=== PATIENT | male | born 1955 | race Caucasian/White ===

== ENCOUNTER 2017-10-14 15:07 | Observation (INO) | payer SELFPAY ==
[2017-10-14 15:10] VITALS: BP 192/95; PULSE 68; RESP 16; O2SAT 96; O2SAT 97
[2017-10-14] MEDS ORDERED: NITROGLYCERIN 2% OINT 1 GM PACKET TOP ONE (15:30)
[2017-10-14] MEDS ORDERED: SODIUM CHLORIDE 0.9% FLUSH 10 ML FLUSH IVF PRN (15:30)
--- NOTE | 2017-10-14 15:33 | PD ---
HPI Chief Complaint: Chest Pain Time Seen by Provider: 15:10 Travel History International Travel<30 days: No Contact w/Intl Traveler<30days: No Traveled to known affect area: No History of Present Illness HPI This is a 62-year-old male who presents to the emergency department with chest discomfort in the center of his chest that woke him up from sleep at around 2 AM , constant, dull and aching, nonradiating, with no associated shortness of breath, nausea or diaphoresis. He's never had pain like this before. He says is a 7 out of 10 and hasn't gotten better throughout the day. He doesn't a history of hypertension but hasn't been on medication in 3-4 years. He also thinks his cholesterol is high. He has smoked intermittently but never for more than a year. His father had bypass surgery at the age of 70. He's never had a stress test. He denies any recent long trips. PFSH Past Medical History Hypertension: Yes Tetanus Vaccination: > 5 Years Influenza Vaccination: No Past Surgical History Surgical History: No Previous Surgery Social History Alcohol Use: Yes (OCCASIONALLY) Tobacco Use: No Substance Use: No Allergies-Medications (Allergen,Severity, Reaction): Coded Allergies: No Known Drug Allergies (Verified Allergy, Unknown, 10/14/17) Reported Meds & Prescriptions Reported Meds & Active Scripts Active No Active Prescriptions or Reported Medications Review of Systems Except as stated in HPI: all other systems reviewed are Neg Physical Exam Narrative GENERAL:Well appearing, no acute distress SKIN: Focused skin assessment warm and dry. HEAD: Atraumatic. Normocephalic. EYES: Pupils equal and round. No injection or drainage. ENT: Moist mucous membranes NECK: Trachea midline. CARDIOVASCULAR: Regular rate and rhythm. No murmur appreciated. RESPIRATORY: Clear to auscultation. Breath sounds equal bilaterally. GASTROINTESTINAL: Abdomen soft, non-tender, nondistended. MUSCULOSKELETAL: No obvious deformities. NEUROLOGICAL: Awake and alert. No obvious cranial nerve deficits. Moving all extremities. PSYCHIATRIC: Appropriate mood and affect; insight and judgment normal. Data Data Last Documented VS Vital Signs Date Time Temp Pulse Resp B/P (MAP) Pulse Ox O2 Delivery O2 Flow Rate FiO2 10/14/17 15:10 68 16 192/95 (127) 96 Orders Orders Electrocardiogram (10/14/17 15:26) Complete Blood Count With Diff (10/14/17 15:26) Comprehensive Metabolic Panel (10/14/17 15:26) Troponin I (10/14/17 15:26) Chest, Single Ap (10/14/17 15:) Ecg Monitoring (10/14/17 15:) Bilateral Bp Monitoring (10/14/17 15:) Iv Access Insert/Monitor (10/14/17:) Oximetry (10/14/17:) Oxygen Administration (10/14/17:) Nitroglycerin 2% Oint (Nitroglycerin 2% (10/14/17 15:30) Sodium Chloride 0.9% Flush (Ns Flush) (10/14/17 15:30) Morphine Inj (Morphine Inj) (10/14/17 16:45) Admit Order (Ed Use Only) (10/14/17 16:39) Labs Laboratory Tests Test 10/14/17 16:00 White Blood Count 12.5 TH/MM3 Red Blood Count 4.97 MIL/MM3 Hemoglobin 14.1 GM/DL Hematocrit 41.5 % Mean Corpuscular Volume 83.6 FL Mean Corpuscular Hemoglobin 28.5 PG Mean Corpuscular Hemoglobin Concent 34.1 % Red Cell Distribution Width 14.0 % Platelet Count 216 TH/MM3 Mean Platelet Volume 6.6 FL Neutrophils (%) (Auto) 85.1 % Lymphocytes (%) (Auto) 7.6 % Monocytes (%) (Auto) 6.8 % Eosinophils (%) (Auto) 0.3 % Basophils (%) (Auto) 0.2 % Neutrophils # (Auto) 10.8 TH/MM3 Lymphocytes # (Auto) 0.9 TH/MM3 Monocytes # (Auto) 0.8 TH/MM3 Eosinophils # (Auto) 0.0 TH/MM3 Basophils # (Auto) 0.0 TH/MM3 CBC Comment DIFF FINAL Differential Comment Blood Urea Nitrogen 11 MG/DL Creatinine 1.10 MG/DL Random Glucose 103 MG/DL Total Protein 7.7 GM/DL Albumin 4.2 GM/DL Calcium Level 9.0 MG/DL Alkaline Phosphatase 50 U/L Aspartate Amino Transf (AST/SGOT) 20 U/L Alanine Aminotransferase (ALT/SGPT) 32 U/L Total Bilirubin 0.8 MG/DL Sodium Level 132 MEQ/L Potassium Level 4.0 MEQ/L Chloride Level 96 MEQ/L Carbon Dioxide Level 28.7 MEQ/L Anion Gap 7 MEQ/L Estimat Glomerular Filtration Rate 68 ML/MIN Troponin I LESS THAN 0.02 NG/ML MDM Medical Decision Making Medical Screen Exam Complete: Yes Emergency Medical Condition: Yes Interpretation(s) EKG: Normal sinus rhythm, no ST changes Mild leukocytosis 85% neutrophils Mild hyponatremia Troponin is normal Chest x-ray with no acute process Differential Diagnosis Acute coronary syndrome, pulmonary embolism, aortic dissection, costochondritis , anxiety Narrative Course This is a 62-year-old male who presents to the emergency department with sternal chest discomfort that's been present since overnight. EKG is nonischemic. Labs are obtained which were reassuring. His pain is nonradiating and would be atypical for aortic dissection and he has no risk factors for pulmonary embolism. Patient does have a history of untreated hypertension. Plan for observation in the chest pain center for serial cardiac enzymes and likely risk stratification tomorrow. He was hypertensive in the emergency department and he was given nitroglycerin and morphine for pain and his blood pressure improved. Physician Communication Physician Communication Discussed with Dr. Bland Diagnosis Primary Impression: Chest pain Qualified Codes: R07.9 - Chest pain, unspecified Admitting Information Admitting Physician Requests: Observation Scripts No Active Prescriptions or Reported Meds Madiha Manzanares MD Oct 14, 2017 15:33
[2017-10-14 16:12] LABS: AUTOMATED NEUTROPHIL # 10.8 TH/MM3 (1.8-7.7); BASOPHIL % 0.2 % (0.0-2.0); EOSINOPHIL % 0.3 % (0.0-4.0); HEMATOCRIT 41.5 % (39.0-51.0); HEMO FLAGS DIFF FINAL; LYMPH % 7.6 % (9.0-44.0); LYMPHOCYTE # 0.9 TH/MM3 (1.0-4.8); MEAN CELL VOLUME 83.6 FL (80.0-100.0); MEAN CORPUSCULAR HEMOGLOBIN 28.5 PG (27.0-34.0); MEAN CORPUSCULAR HGB CONC 34.1 % (32.0-36.0); MONO % 6.8 % (0.0-8.0); NEUT % 85.1 % (16.0-70.0); PLATELET COUNT 216 TH/MM3 (150-450); RED BLOOD COUNT 4.97 MIL/MM3 (4.50-5.90); WHITE BLOOD COUNT 12.5 TH/MM3 (4.0-11.0)
[2017-10-14 16:22] LABS: CHLORIDE 96 MEQ/L (98-107); SODIUM (NA) 132 MEQ/L (136-145)
[2017-10-14 16:26] LABS: ANION GAP 7 MEQ/L (5-15); BICARBONATE 28.7 MEQ/L (21.0-32.0); BLOOD UREA NITROGEN 11 MG/DL (7-18)
--- NOTE | 2017-10-14 16:26 | RADRPT ---
EXAM DATE/TIME: 10/14/2017 15:30 [facility] COMPARISON: No previous studies available for comparison. INDICATIONS : Chest pain. MEDICAL HISTORY : Hypertension. SURGICAL HISTORY : None. ENCOUNTER: Initial ACUITY: 1 day PAIN SCORE: 7/10 LOCATION: chest Substernal. FINDINGS: A single view of the chest demonstrates the lungs to be symmetrically aerated without evidence of mas s, infiltrate or effusion. The cardiomediastinal contours are unremarkable. Osseous structures are intact. CONCLUSION: No acute disease. Hang Kilgore MD FACR on October 14, 2017 at 16:24 Board Certified Radiologist. This report was verified electronically.
[2017-10-14 16:29] LABS: ALT (GPT) 32 U/L (12-78); AST (GOT) 20 U/L (15-37); GLOMERULAR FILTRATION RATE 68 ML/MIN (>89)
[2017-10-14 16:30] LABS: TOTAL BILIRUBIN ADULT 0.8 MG/DL (0.2-1.0)
[2017-10-14 16:32] LABS: ALKALINE PHOSPHATASE 50 U/L (45-117)
[2017-10-14] MEDS ORDERED: MORPHINE SULFATE 4 MG/ML INJ IV PUSH ONE (16:45)
[2017-10-14] MEDS ORDERED: cloNIDine HCL 0.1 MG TAB PO PRN (17:15)
[2017-10-14] MEDS ORDERED: SENNOSIDES 8.6 MG TAB PO PRN (17:15)
[2017-10-14] MEDS ORDERED: BISACODYL 10 MG SUPP RECTAL PRN (17:15)
[2017-10-14] MEDS ORDERED: SODIUM CHLORIDE 0.9% FLUSH 10 ML FLUSH IV FLUSH PRN (17:15)
[2017-10-14] MEDS ORDERED: MAGNESIUM HYDROXIDE SUSP 30 ML CUP PO PRN (17:15)
[2017-10-14] MEDS ORDERED: NALOXONE HCL 0.4 MG/ML AMP IV PUSH PRN (17:15)
[2017-10-14] MEDS ORDERED: ONDANSETRON HCL 4 MG/2 ML VIAL IVP PRN (17:15)
[2017-10-14] MEDS ORDERED: ACETAMINOPHEN 325 MG TAB PO PRN (17:15)
--- NOTE | 2017-10-14 17:19 | HHI.HP ---
HPI Service [facility] Primary Care Physician No Primary Care Physician Admission Diagnosis Chest pain Diagnoses: (1) Chest pain Diagnosis: Principal Chief Complaint: Chest pain Travel History International Travel<30 Days: No Contact w/Intl Traveler <30 Da: No Traveled to Known Affected Are: No History of Present Illness Mr. Felix is a 62-year-old male patient with a known medical history of hypertension who presented to the ED with complaints of chest pain. Patient states that around 0200 this morning while he was watching television he developed a sudden chest discomfort that was located in his midsternal chest and radiated to his left jaw, pressure-like and constant in nature, rated a 10/ 10 on pain scale, denies any known relieving or aggravating factors. Denies ever having this type of pain before. Denies any associated nausea, vomiting, diaphoresis or shortness of breath. He does state that he ate several pieces of pizza the evening before the pain developed. Does admit to some indigestion with occasional use of OTC antacids. Patient does not follow with a PCP, states he thinks he had a diagnosis of hypertension but does not take any medications at home. Denies any recent illness including fever, chills, headache, shortness of breath, abdominal pain, nausea, vomiting, diarrhea, dysuria. Review of Systems Constitutional: DENIES: Fever, Chills Eyes: DENIES: Blurred vision, Eye inflammation Respiratory: DENIES: Cough, Shortness of breath Cardiovascular: COMPLAINS OF: Chest pain, DENIES: Palpitations Gastrointestinal: DENIES: Abdominal pain, Black stools, Bloody stools, Constipation, Diarrhea, Nausea, Vomiting Musculoskeletal: DENIES: Joint pain Psychiatric: DENIES: Anxiety Except as stated in HPI: all other systems reviewed are Neg Past Family Social History Past Medical History Hypertension Past Surgical History Hernia repair x 2. Reported Medications Active No Active Prescriptions or Reported Medications Allergies: Coded Allergies: No Known Drug Allergies (Verified Allergy, Unknown, 10/14/17) Active Ordered Medications Current Medications Medications (Trade) Dose Ordered Sig/Eva Route Start Time Stop Time Status Last Admin (NS Flush) 2 ml UNSCH PRN IVF 10/14/17 15:30 (NS Flush) 2 ml UNSCH PRN IV FLUSH 10/14/17 17:15 UNV (NS Flush) 2 ml BID IV FLUSH 10/14/17 21:00 UNV (Tylenol) 650 mg Q4H PRN PO 10/14/17 17:15 UNV (Zofran Inj) 4 mg Q6H PRN IVP 10/14/17 17:15 UNV (Narcan Inj) 0.4 mg UNSCH PRN IV PUSH 10/14/17 17:15 UNV (Xochitl-Colace) 1 tab BID PO 10/14/17 21:00 UNV (Milk Of [place]) 30 ml Q12H PRN PO 10/14/17 17:15 UNV (Senokot) 17.2 mg Q12H PRN PO 10/14/17 17:15 UNV (Dulcolax Supp) 10 mg DAILY PRN RECTAL 10/14/17 17:15 UNV (Catapres) 0.1 mg Q6H PRN PO 10/14/17 17:15 UNV (Aspirin) 325 mg DAILY PO 10/15/17 09:00 UNV Family History Paternal medical history significant for ID with CABG at the age of 7070 years old. Mother is healthy. Social History Denies any current tobacco use. Does state he has smoked on and off during his life during times of increased stress. Denies any alcohol use. Denies any illicit drug use. Physical Exam Vital Signs Vital Signs Date Time Temp Pulse Resp B/P (MAP) Pulse Ox O2 Delivery O2 Flow Rate FiO2 10/14/17 15:10 68 16 192/95 (127) 96 Physical Exam GENERAL: This is a well-nourished, well-developed patient, in no apparent distress. SKIN: No rashes, ecchymoses or lesions. Warm and dry. HEENT: Atraumatic. Normocephalic. Pupils equal round and reactive. Extraocular motions intact. No scleral icterus. No injection or drainage. Nose without bleeding. Airway patent. NECK: Trachea midline. No JVD. Supple. CARDIOVASCULAR: Regular rate and rhythm without murmurs, gallops, or rubs. Some pain to epigastric area to palpation. RESPIRATORY: Clear to auscultation. Breath sounds equal bilaterally. No wheezes , rales, or rhonchi. GASTROINTESTINAL: Abdomen soft, non-tender, nondistended. No guarding. Active bowel sounds. MUSCULOSKELETAL: Extremities without clubbing, cyanosis, or edema. No joint tenderness, effusion, or edema noted. NEUROLOGICAL: Awake and alert. Cranial nerves II through XII intact. Motor and sensory grossly within normal limits. Five out of 5 muscle strength in all muscle groups. Normal speech. Laboratory Laboratory Tests Test 10/14/17 16:00 White Blood Count 12.5 Red Blood Count 4.97 Hemoglobin 14.1 Hematocrit 41.5 Mean Corpuscular Volume 83.6 Mean Corpuscular Hemoglobin 28.5 Mean Corpuscular Hemoglobin Concent 34.1 Red Cell Distribution Width 14.0 Platelet Count 216 Mean Platelet Volume 6.6 Neutrophils (%) (Auto) 85.1 Lymphocytes (%) (Auto) 7.6 Monocytes (%) (Auto) 6.8 Eosinophils (%) (Auto) 0.3 Basophils (%) (Auto) 0.2 Neutrophils # (Auto) 10.8 Lymphocytes # (Auto) 0.9 Monocytes # (Auto) 0.8 Eosinophils # (Auto) 0.0 Basophils # (Auto) 0.0 CBC Comment DIFF FINAL Differential Comment Blood Urea Nitrogen 11 Creatinine 1.10 Random Glucose 103 Total Protein 7.7 Albumin 4.2 Calcium Level 9.0 Alkaline Phosphatase 50 Aspartate Amino Transf (AST/SGOT) 20 Alanine Aminotransferase (ALT/SGPT) 32 Total Bilirubin 0.8 Sodium Level 132 Potassium Level 4.0 Chloride Level 96 Carbon Dioxide Level 28.7 Anion Gap 7 Estimat Glomerular Filtration Rate 68 Troponin I LESS THAN 0.02 Result Diagram: 10/14/17 1600 10/14/17 1600 Imaging Last Impressions Chest X-Ray 10/14/17 1526 Signed Impressions: Service Date/Time: Saturday, October 14, 2017 15:30 - CONCLUSION: No acute disease. Hang Kilgore MD FACR Septic Shock Reassessment Septic shock perfusion: reassessment completed Caprini VTE Risk Assessment Caprini VTE Risk Assessment: No/Low Risk (score <= 1) Caprini Risk Assessment Model Point Value = 1 Point Value = 2 Point Value = 3 Point Value = 5 Age 41-60 Minor surgery BMI > 25 kg/m2 Swollen legs Varicose veins or History of unexplained or recurrent spontaneous Oral contraceptives or hormone replacement Sepsis (< 1 month) Serious lung disease, including pneumonia (< 1 month) Abnormal pulmonary function Acute myocardial infarction Congestive heart failure (< 1 month) History of inflammatory bowel disease Medical patient at bed rest Age 61-74 Arthroscopic surgery Major open surgery (> 45 min) Laparoscopic surgery (> 45 min) Malignancy Confined to bed (> 72 hours) Immobilizing plaster cast Central venous access Age >= 75 History of VTE Family history of VTE Factor V Leiden Prothrombin [id number] Lupus anticoagulant Anticardiolipin antibodies Elevated serum homocysteine Heparin-induced thrombocytopenia Other congenital or acquired thrombophilia Stroke (< 1 month) Elective arthroplasty Hip, pelvis, or leg fracture Acute spinal cord injury (< 1 month) Prophylaxis Regimen Total Risk Factor Score Risk Level Prophylaxis Regimen 0-1 Low Early ambulation 2 Moderate Order ONE of the following: *Sequential Compression Device (SCD) *Heparin 5000 units SQ BID 3-4 Higher Order ONE of the following medications: *Heparin 5000 units SQ TID *Enoxaparin/Lovenox 40 mg SQ daily (WT < 150 kg, CrCl > 30 mL/min) *Enoxaparin/Lovenox 30 mg SQ daily (WT < 150 kg, CrCl > 10-29 mL/min) *Enoxaparin/Lovenox 30 mg SQ BID (WT < 150 kg, CrCl > 30 mL/min) AND/OR *Sequential Compression Device (SCD) 5 or more Highest Order ONE of the following medications: *Heparin 5000 units SQ TID (Preferred with Epidurals) *Enoxaparin/Lovenox 40 mg SQ daily (WT < 150 kg, CrCl > 30 mL/min) *Enoxaparin/Lovenox 30 mg SQ daily (WT < 150 kg, CrCl > 10-29 mL/min) *Enoxaparin/Lovenox 30 mg SQ BID (WT < 150 kg, CrCl > 30 mL/min) AND *Sequential Compression Device (SCD) Assessment and Plan Problem List: (1) Chest pain ICD Code: R07.9 - Chest pain, unspecified Plan: Suspect secondary to HTN vs rule out ACS vs gastric reflux. Patient has been admitted to the chest pain center. Serial EKGs and serial troponins have been ordered for ruling out ACS purposes. Initial troponin negative. Continue cardiac telemetry. Monitor for arrhythmias. Will order Maalox as needed for indigestion. Started on Aspirin daily. Will check lipid panel. Follow. If serial EKGs and serial troponins are negative overnight patient will undergo a nuclear cardiac stress test in the am to rule out any possibility of further ischemia. Supportive care. Patient is stable at this time and agreeable to the plan. (2) Hypertension ICD Code: I10 - Essential (primary) hypertension Plan: BP elevated on presentation possibly secondary to pain. Will start on Lisinopril. DVT Prophylaxis: SCDs. Sherlyn Ceballos Oct 14, 2017 17:18
[2017-10-14] MEDS ORDERED: ALUMINUM/MAGNESIUM/SIMETH 30 ML CUP PO PRN (17:30)
[2017-10-14 20:00] VITALS: BP 164/98; PULSE 76; RESP 20; TEMP 97.8; O2SAT 99
[2017-10-14] MEDS: SODIUM CHLORIDE 0.9% FLUSH 10 ML FLUSH IV FLUSH SCH (20:50)
[2017-10-14] MEDS: DOCUSATE SODIUM 50 MG/SENNA 8.6 MG TAB PO SCH (20:51)
[2017-10-14 21:20] VITALS: O2SAT 99
[2017-10-14] MEDS ORDERED: NITROGLYCERIN 0.4 MG SL 25 TABS/BTL SL PRN (21:45)
[2017-10-14] MEDS ORDERED: MORPHINE SULFATE 2 MG/ML INJ IV PUSH PRN (21:45)
[2017-10-14 22:57] LABS: CREATINE KINASE 56 U/L (39-308)
[2017-10-15] VITALS: BP 161/87; PULSE 75; RESP 20; TEMP 96.2; O2SAT 99
[2017-10-15 04:00] VITALS: BP 161/89; PULSE 77; RESP 18; TEMP 97.6; O2SAT 98
[2017-10-15 04:09] LABS: CHLORIDE 95 MEQ/L (98-107); POTASSIUM 3.6 MEQ/L (3.5-5.1); SODIUM (NA) 132 MEQ/L (136-145)
[2017-10-15 04:12] LABS: ANION GAP 9 MEQ/L (5-15); BICARBONATE 27.8 MEQ/L (21.0-32.0); BLOOD UREA NITROGEN 16 MG/DL (7-18)
[2017-10-15 04:15] LABS: GLOMERULAR FILTRATION RATE 62 ML/MIN (>89)
[2017-10-15 04:37] LABS: CREATINE KINASE 44 U/L (39-308)
[2017-10-15 06:27] LABS: AUTOMATED NEUTROPHIL # 7.8 TH/MM3 (1.8-7.7); BASOPHIL % 0.2 % (0.0-2.0); EOSINOPHIL % 0.4 % (0.0-4.0); HEMATOCRIT 40.1 % (39.0-51.0); LYMPH % 8.4 % (9.0-44.0); LYMPHOCYTE # 0.8 TH/MM3 (1.0-4.8); MEAN CELL VOLUME 84.9 FL (80.0-100.0); MEAN CORPUSCULAR HEMOGLOBIN 28.8 PG (27.0-34.0); MEAN CORPUSCULAR HGB CONC 33.9 % (32.0-36.0); MONO % 9.1 % (0.0-8.0); NEUT % 81.9 % (16.0-70.0); PLATELET COUNT 191 TH/MM3 (150-450); RED BLOOD COUNT 4.72 MIL/MM3 (4.50-5.90); RED CELL DISTRIBUTION WIDTH 14.1 % (11.6-17.2); WHITE BLOOD COUNT 9.5 TH/MM3 (4.0-11.0)
[2017-10-15 06:35] LABS: HEMO FLAGS DIFF FINAL
[2017-10-15] MEDS ORDERED: ENALAPRILAT 1.25 MG/ML VIAL IV PUSH PRN (07:30)
[2017-10-15 08:00] VITALS: BP 160/105; PULSE 85; RESP 16; TEMP 98; O2SAT 94
[2017-10-15 08:28] VITALS: O2SAT 98
[2017-10-15] MEDS ORDERED: ASPIRIN 325 MG TAB PO SCH (09:00)
[2017-10-15] MEDS ORDERED: LISINOPRIL 10 MG TAB PO SCH (09:00)
[2017-10-15] MEDS: DOCUSATE SODIUM 50 MG/SENNA 8.6 MG TAB PO SCH (09:41)
[2017-10-15] MEDS: SODIUM CHLORIDE 0.9% FLUSH 10 ML FLUSH IV FLUSH SCH (09:42)
[2017-10-15] MEDS ORDERED: REGADENOSON INJ 0.4 MG/5 ML SYR IV ONE (10:05)
[2017-10-15 10:12] LABS: HDL CHOLESTEROL 62.5 MG/DL (40.0-60.0); LDL CHOLESTEROL 112 MG/DL (0-99)
--- NOTE | 2017-10-15 11:23 | RADRPT ---
EXAM DATE/TIME: 10/15/2017 10:00 [facility] COMPARISON: No previous studies available for comparison. INDICATIONS : Mid chest pain for one day. Angina. DOSE: 26.9 mCi Tc99m Myoview at stress. 8.7 mCi Tc99m Myoview at rest. 0.4 mg Lexiscan STRESS SYMPTOMS: None noted. EJECTION FRACTION: 61% MEDICAL HISTORY : Hypertension. SURGICAL HISTORY : Inguinal hernia repair. ENCOUNTER: Initial ACUITY: 1 day PAIN SCALE: 10/10 LOCATION: Midsternal chest TECHNIQUE: The patient underwent pharmacologic stress with infusion of prescribed dose. Continuous ECG tracing was monitored during stress. Gated SPECT imaging was performed after stress and conventional SPECT i maging was performed at rest. The examination was performed on a SPECT/CT scanner, both attenuation and non-corrected datasets were reviewed. FINDINGS: DISTRIBUTION: The maximum perfused segment at stress is in the <mid anterolateral and mid septal villaseñor. PERFUSION STUDY: The pattern of perfusion at stress is within normal limits. GATED STUDY: There is intact wall motion and thickening without hypokinetic or dyskinetic segments. CONCLUSION: Normal examination. RISK CATEGORY: Low (<1% Annual Mortality Rate) Shad Robins MD on October 15, 2017 at 11:21 Board Certified Radiologist. This report was verified electronically.
[2017-10-15 12:34] VITALS: BP 178/100
--- NOTE | 2017-10-15 12:35 | EKG ---
Date Performed: 10/14/2017 Time Performed: 15:14:02 PTAGE: 62 years EKG: Sinus rhythm MODERATE VOLTAGE CRITERIA FOR LVH, CONSIDER NORMAL VARIANT BORDERLINE ECG INTERPRETATION BASED ON A DEFAULT AGE OF 40 YEARS NO PREVIOUS TRACING DOCTOR: Kailash Sauceda Interpretating Date/Time 10/15/2017 12:35:06
--- NOTE | 2017-10-15 12:57 | EKG ---
Date Performed: 10/14/2017 Time Performed: 21:54:24 PTAGE: 62 years EKG: Sinus rhythm MODERATE VOLTAGE CRITERIA FOR LVH, CONSIDER NORMAL VARIANT NONSPECIFIC T-WAVE ABNORMALITY BORDERLINE ECG PREVIOUS TRACING : 10/14/2017 15.14 Compared to prior tracing no significant change DOCTOR: Kailash Sauceda Interpretating Date/Time 10/15/2017 12:57:22
--- NOTE | 2017-10-15 12:57 | EKG ---
Date Performed: 10/15/2017 Time Performed: 04:24:00 PTAGE: 62 years EKG: Sinus rhythm MODERATE VOLTAGE CRITERIA FOR LVH, CONSIDER NORMAL VARIANT NONSPECIFIC T-WAVE ABNORMALITY BORDERLINE ECG PREVIOUS TRACING : 10/14/2017 21.54 Compared to prior tracing no significant change DOCTOR: Kailash Sauceda Interpretating Date/Time 10/15/2017 12:57:05
[2017-10-15] MEDS ORDERED: AMLO5TAB2 PO (13:51)
[2017-10-15] MEDS ORDERED: LISI10TA3 PO (13:51)
[2017-10-15] MEDS ORDERED: LIPI20TA PO (13:51)
[2017-10-15] MEDS ORDERED: ASPI81TA23 PO (13:52)
--- NOTE | 2017-10-15 13:55 | HHI.DS ---
Discharge Summary Admission Date Oct 14, 2017 at 16:40 Discharge Date: Oct 15, 2017 Admitting Diagnosis Chest pain (1) Chest pain ICD Code: R07.9 - Chest pain, unspecified (2) Hypertension ICD Code: I10 - Essential (primary) hypertension Procedures Nuclear stress test 10/15/2017. Normal examination. Brief History - From Admission Mr. Felix is a 62-year-old male patient with a known medical history of hypertension who presented to the ED with complaints of chest pain. Patient states that around 0200 this morning while he was watching television he developed a sudden chest discomfort that was located in his midsternal chest and radiated to his left jaw, pressure-like and constant in nature, rated a 10/ 10 on pain scale, denies any known relieving or aggravating factors. Denies ever having this type of pain before. Denies any associated nausea, vomiting, diaphoresis or shortness of breath. He does state that he ate several pieces of pizza the evening before the pain developed. Does admit to some indigestion with occasional use of OTC antacids. Patient does not follow with a PCP, states he thinks he had a diagnosis of hypertension but does not take any medications at home. Denies any recent illness including fever, chills, headache, shortness of breath, abdominal pain, nausea, vomiting, diarrhea, dysuria. CBC/BMP: 10/15/17 0505 10/15/17 0350 Significant Findings Laboratory Tests Test 10/14/17 16:00 10/14/17 21:57 10/15/17 03:50 10/15/17 05:05 White Blood Count 12.5 TH/MM3 (4.0-11.0) Mean Platelet Volume 6.6 FL (7.0-11.0) Neutrophils (%) (Auto) 85.1 % (16.0-70.0) 81.9 % (16.0-70.0) Lymphocytes (%) (Auto) 7.6 % (9.0-44.0) 8.4 % (9.0-44.0) Neutrophils # (Auto) 10.8 TH/MM3 (1.8-7.7) 7.8 TH/MM3 (1.8-7.7) Lymphocytes # (Auto) 0.9 TH/MM3 (1.0-4.8) 0.8 TH/MM3 (1.0-4.8) Sodium Level 132 MEQ/L (136-145) 132 MEQ/L (136-145) Chloride Level 96 MEQ/L (98-107) 95 MEQ/L (98-107) Estimat Glomerular Filtration Rate 68 ML/MIN (>89) 62 ML/MIN (>89) Troponin I LESS THAN 0.02 NG/ML LESS THAN 0.02 NG/ML LESS THAN 0.02 NG/ML Random Glucose 117 MG/DL (74-106) Calcium Level 8.4 MG/DL (8.5-10.1) LDL Cholesterol 112 MG/DL (0-99) HDL Cholesterol 62.5 MG/DL (40.0-60.0) Monocytes (%) (Auto) 9.1 % (0.0-8.0) Imaging Last Impressions Myocardial Perfusion Scan Nuc Med 10/15/17 0000 Signed Impressions: Service Date/Time: Sunday, October 15, 2017 10:00 - CONCLUSION: Normal examination. RISK CATEGORY: Low (<1%% Annual Mortality Rate) Shad Robins MD Chest X-Ray 10/14/17 1526 Signed Impressions: Service Date/Time: Saturday, October 14, 2017 15:30 - CONCLUSION: No acute disease. Hang Kilgore MD FACR PE at Discharge GENERAL: Alert, oriented 3, NAD. SKIN: Warm and dry. HEAD: Normocephalic. EYES: No scleral icterus. No injection or drainage. NECK: Supple, trachea midline. No JVD or lymphadenopathy. CARDIOVASCULAR: Regular rate and rhythm without murmurs, gallops, or rubs. RESPIRATORY: Breath sounds equal bilaterally. No accessory muscle use. GASTROINTESTINAL: Abdomen soft, non-tender, nondistended. MUSCULOSKELETAL: No cyanosis, or edema. BACK: Nontender without obvious deformity. No CVA tenderness. Pt update on day of discharge Patient is currently doing well. Denies any chest pain, shortness of breath, fever or chills. He underwent nuclear stress test today. No acute findings. Hospital Course Mr. Garrow is a 62-year-old male patient with a known medical history of hypertension who presented to the ED with complaints of chest pain. Troponins 3 were 0.02. Cholesterol profile indicates total cholesterol 188, LDL 112, HDL 62.5. Patient underwent nuclear stress test which was normal. Patient denied any chest pain, shortness of breath, fever or chills. He was subsequently discharged home with Lipitor, amlodipine, lisinopril, aspirin. Pt Condition on Discharge: Good Discharge Disposition: Discharge Home Discharge Time: <= 30 minutes Discharge Instructions DIET: Follow Instructions for: Heart Healthy Diet Activities you can perform: Regular-No Restrictions Follow up Referrals: PCP Follow-up - 2 Weeks New Medications: Amlodipine (Amlodipine) 5 Mg Tab 5 MG PO DAILY for Blood Pressure Management, #30 TAB [address] (Aspirin EC) 81 Mg Tabdr 81 MG PO DAILY for Blood Clot Prevention, #90 TAB 0 Refills Atorvastatin (Lipitor) 20 Mg Tab 20 MG PO HS for Cholesterol Management, #30 TAB 0 Refills Lisinopril (Lisinopril) 10 Mg Tab 10 MG PO DAILY for Blood Pressure Management, #31 TAB 3 Refills Last Sanchez DO Oct 15, 2017 1:55 pm
[2017-10-15 14:42] VITALS: BP 158/98
--- NOTE | 2017-10-15 15:54 | TR ---
Date Performed: 10/15/2017 Time Performed: 10:26:58 DOCTOR: Zonia Fan DRUG LIST: CLINICAL HISTORY: ANGINA REASON FOR TEST: Angina REASON FOR ENDING: OBSERVATION: CONCLUSION: Lexiscan stress test was performed under standard four minute protocol. Radionuclid e was injected one minute prior to ending the test. No electrocardiographic abormalities were present to suggest ischemia. Nuclear imaging and interpretation are pending. COMMENTS:
== END 2017-10-15 14:55 | disposition home or self-care (01) ==
LOC: PHED 15:07 → PHEDA 16:40 → PH3B 18:57
PROVIDERS: ADMIT Hospitalist; ATTEND Hospitalist
DX: R07.89 Other chest pain (principal); I10 Essential (primary) hypertension; D72.829 Elevated white blood cell count, unspecified; E87.1 Hypo-osmolality and hyponatremia; I20.9 Angina pectoris, unspecified; K30 Functional dyspepsia
CPT/HCPCS: 71010; 78452; 80048; 80053; 80061; 82550; 84484; 85025; 93005; 93017; 96374; 96375; 96376; 99285; A9502; G0378; J2270; J2785